=== PATIENT | female | born 1980 ===

== ENCOUNTER 2023-12-13 06:12 | Day surgery (SDC) | payer OTHER, SELFPAY ==
[2023-12-13] VITALS (10 sets, daily range): BP systolic 96–132; BP diastolic 70–91; BMI 32.7
[2023-12-13] MEDS: NORMOSOL-R 1000 IV (07:45)
[2023-12-13] MEDS: CELEBREX 200 MG PO (08:02)
[2023-12-13] MEDS: TYLENOL 1000 MG PO (08:02)
[2023-12-13] MEDS: DILAUDID 0.25 MG IV ×2 (09:21→09:51)
--- NOTE | 2023-12-13 10:04 | SUR.PHASEI ---
patient received from OR unresponsive to voice and/or tactile stimuli, assistance to keep airway open. When patient awake - c/o severe pain Left knee 06/05. Patient cautioned that medication for pain needs to be balanced with vital signs and
breathing especially. Dr House visits. medicated for pain x2 - cautiously with Dilaudid 0.25mg - snoring respirations after each medication - sleeps soundly. Now at 1008 feels better.
== END 2023-12-13 11:14 | disposition home or self-care (01) ==
LOC: SDS 06:12
PROVIDERS: ATTENDING PHYSICIAN Orthopaedic Surgery
DX: S83.242A Other tear of medial meniscus, current injury, left knee, initial encounter (principal); S83.282A Other tear of lateral meniscus, current injury, left knee, initial encounter; Q68.6 Discoid meniscus; X58.XXXA Exposure to other specified factors, initial encounter; M94.262 Chondromalacia, left knee
CPT/HCPCS: 29880